=== PATIENT | male | born 2000 | race Caucasian/White ===

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

== ENCOUNTER 2018-02-03 14:38 | Emergency (ER) | payer OTHER ==
[~2018-02-03] VITALS: Ht 165.1 cm; Wt 108.0 kg
[~2018-02-03 14:38] MED LIST changes: +CEPH-460 PO
[2018-02-03 14:51] VITALS: BP 178/90; PULSE 82; RESP 16; TEMP 99.4; O2SAT 97
--- NOTE | 2018-02-03 15:15 | PD ---
HPI Chief Complaint: ENT Complaint Time Seen by Provider: 15:07 Travel History International Travel<30 days: No Contact w/Intl Traveler<30days: No Traveled to known affect area: No History of Present Illness HPI 17-year-old male here for evaluation of sore throat, generalized malaise. Symptoms started 2 days ago. Pain in his throat is moderate to severe, constant , worse with swallowing. He is having a difficult time swallowing because of the pain. He had an episode of blood-tinged sputum. He also had diarrhea 2 days ago which has since resolved. No vomiting. No abdominal pain. No fevers or chills. No rash. He has been taking ibuprofen and DayQuil with only mild improvement in symptoms. [facility] Past Medical History ADHD: Yes (HX OF) Cancer: No Cardiovascular Problems: No Diabetes: No Diminished Hearing: No Headaches: No Psychiatric: Yes (HX BIPOLAR A CHILD) Immunizations Current: Yes Migraines: Yes Seizures: No Thyroid Disease: No Ulcer: No Past Surgical History Appendectomy: No Cholecystectomy: No Other Surgery: No Social History Alcohol Use: No Tobacco Use: Yes (denies) Substance Use: No (Denies any substance issues.) Allergies-Medications (Allergen,Severity, Reaction): Coded Allergies: No Known Allergies (Verified Adverse Reaction, Unknown, 02/03/18) Reported Meds & Prescriptions Reported Meds & Active Scripts Active Amoxicillin 875 Mg Tab 875 Mg PO BID 10 Days Review of Systems Except as stated in HPI: all other systems reviewed are Neg Physical Exam Narrative GENERAL: Well-developed, well-nourished, comfortable, no apparent distress. SKIN: Focused skin assessment warm/dry. No rash. HEAD: Atraumatic. Normocephalic. EYES: Pupils equal and round. No scleral icterus. No injection or drainage. ENT: No nasal bleeding or discharge. Mucous membranes pink and moist. Bilateral tonsil enlargement with bilateral exudates. Uvula is midline. Normal phonation. No drooling or stridor. No trismus. NECK: Trachea midline. No JVD. No submandibular or anterior neck swelling or induration. No cervical adenopathy. No nuchal rigidity. CARDIOVASCULAR: Regular rate and rhythm. RESPIRATORY: No accessory muscle use. Clear to auscultation. Breath sounds equal bilaterally. GASTROINTESTINAL: Abdomen soft, non-tender, nondistended. Hepatic and splenic margins not palpable. MUSCULOSKELETAL: No obvious deformities. No clubbing. No cyanosis. No edema. NEUROLOGICAL: Awake and alert. No obvious cranial nerve deficits. Motor grossly within normal limits. Normal speech. PSYCHIATRIC: Appropriate mood and affect; insight and judgment normal. Data Data Last Documented VS Vital Signs Date Time Temp Pulse Resp B/P (MAP) Pulse Ox O2 Delivery O2 Flow Rate FiO2 02/03/18 14:51 99.4 82 16 178/90 (119) 97 Orders Orders Influenzae A/B Antigen (02/03/18 15:10) Group A Rapid Strep Screen (02/03/18 15:10) Strep Culture (Group A) (02/03/18 15:05) Amoxicillin (Trimox) (02/03/18 15:45) Monoscreen (02/03/18 15:46) Dexamethasone Inj (Decadron Inj) (02/03/18 16:00) Ed Discharge Order (02/03/18 16:05) Labs Laboratory Tests Test 02/03/18 16:00 Monoscreen NEG MDM Medical Decision Making Medical Screen Exam Complete: Yes Emergency Medical Condition: Yes Differential Diagnosis Strep pharyngitis, influenza, viral illness, meningitis unlikely, deep space neck infection unlikely Narrative Course Vital signs show heart rate 82, blood pressure 178/90, pulse ox 97% on room air , oral temp 99.4F. Influenza is negative. Group A strep is negative. Patient is overall very well-appearing and tolerating clear liquids in the emergency department. He does have bilateral tonsillar exudates with moderate enlargement of the tonsils. His uvula is midline. There are no signs of deep space neck infection. The patient Is negative. [place] screen will be ordered, however this test takes several hours as it needs to be sent to the [facility]. Patient will be given a dose of IM Decadron. I will give him a prescription for amoxicillin, however I will call him with the mono screen results before he is to fill this medication. If his mono screen is negative, I will have him start the amoxicillin. He is otherwise stable for discharge home with outpatient follow-up with a primary care physician this week. He was advised on when to return to the emergency department. He verbalizes understanding and agreement with plan. 6:13 PM: I called the patient on his cell phone to inform him that his mono screen is negative and that he should fill the prescription for amoxicillin as his physical exam findings are consistent with strep pharyngitis. Diagnosis Primary Impression: Pharyngitis Qualified Codes: J02.9 - Acute pharyngitis, unspecified Referrals: Primary Care Physician 3 days Additional Instructions: Follow-up with a primary care physician this week. Stay hydrated with plenty of fluids. Keep fever under control with Tylenol and ibuprofen. Return to the emergency department for worsening symptoms or any other concerns. Scripts Amoxicillin (Amoxicillin) 875 Mg Tab 875 MG PO BID for Infection for 10 Days, #20 TAB 0 Refills Prov: Michael Ohara MD 02/03/18 Disposition: 01 DISCHARGE HOME Condition: Stable Michael Ohara MD February 03, 2018 15:15
[2018-02-03] MEDS ORDERED: AMOX875T PO (15:44)
[2018-02-03] MEDS ORDERED: AMOXICILLIN 875 MG TAB PO ONE (15:45)
[2018-02-03] MEDS ORDERED: DEXAMETHASONE SOD PHOS 20 MG/5 ML VIAL IM ONE (16:00)
[2018-02-03 17:58] LABS: MONOSCREEN NEG (NEG)
== END 2018-02-03 16:16 | disposition home or self-care (01) ==
LOC: PHEFT 14:38
DX: J02.0 Streptococcal pharyngitis (principal); B95.4 Other streptococcus as the cause of diseases classified elsewhere
CPT/HCPCS: 86308; 87081; 87804; 87880; 96372; 99283; J1100

== ENCOUNTER 2018-03-02 11:12 | Emergency (ER) | payer OTHER ==
[~2018-03-02] VITALS: Ht 172.7 cm; Wt 105.0 kg
[~2018-03-02 11:12] MED LIST changes: +AMOX875T PO; -CEPH-460 PO; -CIPR-9 PO; -IBUP1TAB7 PO; -PERC5TAB12 PO
[2018-03-02 11:36] VITALS: BP 152/75; PULSE 77; RESP 18; TEMP 98.5; O2SAT 98
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
[2018-03-02] MEDS ORDERED: METHOCARBAMOL 500 MG TAB PO ONE (12:00)
[2018-03-02] MEDS ORDERED: IBUPROFEN 800 MG TAB PO ONE (12:00)
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
[2018-03-02] MEDS ORDERED: ROBA750T PO (13:15)
[2018-03-02] MEDS ORDERED: IBUP1TAB7 PO (13:15)
== END 2018-03-02 13:46 | disposition home or self-care (01) ==
LOC: PHEFT 11:12
DX: S16.1XXA Strain of muscle, fascia and tendon at neck level, initial encounter (principal); M54.5 Low back pain; S50.811A Abrasion of right forearm, initial encounter; V47.5XXA Car driver injured in collision with fixed or stationary object in traffic accident, initial encounter; Y92.410 Unspecified street and highway as the place of occurrence of the external cause
CPT/HCPCS: 71046; 72125; 72131; 73090; 73130; 99284